=== PATIENT | male | born 1945 | race Caucasian/White ===

== ENCOUNTER 2025-04-18 06:18 | Emergency (ER) | payer OTHER, SELFPAY ==
[2025-04-18 06:29] VITALS: BP 177/88
[2025-04-18 06:42] VITALS: BP 171/93
[2025-04-18 07:00] VITALS: BP 154/79
--- NOTE | 2025-04-18 07:14 | ED.GENMED ---
History of Present Illness
General
Chief Complaint: Chest Pain
Source: patient
Exam Limitations: none
Time Seen by Provider: 04/18/25 06:58
History of Present Illness
History of Present Illness:
79-year-old male presents with chest tightness and shortness of breath worsening over the past week. He is on Coumadin for A-fib. He follows with Dr. Mendez from [place]. He denies abdominal pain or vomiting. He denies any significant leg
swelling. No fevers. He does note a dry cough. The pain that he describes as not made worse with breathing.
Phy Exam
Physical Exam
Physical Exam:
General: Well-appearing male no acute respiratory distress
HEENT normocephalic atraumatic
Heart: Irregular rate and rhythm
Lungs: Clear no wheeze
Abdomen is soft nontender nondistended
Extremities: Pitting edema noted bilateral lower extremities
Scores
Heart Score for Chest Pain Patients
STEMI patient?: No
History: Slightly or Non-Suspicious
ECG: Normal
Age: >/= 65 years
Risk Factors: 1 or 2 Risk Factors
Troponin: </= Normal Limit
Heart Score for Chest Pain Patients: 3
Heart Score Risk: 2.5% MACE over next 6 weeks
Course
Orders/Labs/Results
Orders:
Orders
04/18/25 06:19
EKG [Electrocardiogram (*1)] Urgent
Reason for Study: Chest Pain
EKG- Treatment ONCE
04/18/25 07:14
CR Chest - 2 Views Urgent
Comment:
Reason For Exam: sob
04/18/25 07:30
COVID-19 Antigen Urgent
Source: Nasal Swab
Complete Blood Count/With Diff Urgent
Comprehensive Metabolic Panel Urgent
NT-proBNP Urgent
Prothrombin Time Urgent
Troponin I Urgent
04/18/25 09:33
Furosemide [Lasix] 40 mg PO NOW STA
Abnormal Lab Results
04/18/25
07:30
RBC 3.94 L 10^6/uL
(4.70-6.10)
Hgb 12.1 L g/dL
(13.0-18.0)
Hct 36.1 L %
(39.0-52.0)
MPV 11.1 H fL
(7.4-10.4)
Absolute Monos (auto) 0.9 H 10^3/uL
(0.1-0.6)
Monocytes % 10.1 H %
(1.7-9.3)
PT 30.1 H Sec
(11.4-14.6)
Glucose 105 H mg/dl
(70-99)
04/18/25 07:30
04/18/25 07:30
Vital Signs
Initial and Last Documented VS:
Initial Vital Signs
Temp Pulse Resp BP Pulse Ox
98.4 F 78 22 177/88 94
04/18/25 06:29 04/18/25 06:29 04/18/25 06:29 04/18/25 06:29 04/18/25 06:29
Last Documented Vital Signs
Temp Pulse Resp BP Pulse Ox
98.4 F 68 19 153/83 90
04/18/25 06:29 04/18/25 09:00 04/18/25 09:00 04/18/25 09:00 04/18/25 09:00
MDM/Problems Addressed
Differential Diagnosis Includes:
Chest tightness and shortness of breath. Consider viral illness such as COVID or bronchitis heart failure versus pneumonia. He is on Coumadin will check INR and CBC to evaluate for any anemia. He also does appear to be retaining some fluid.
Consider CHF. Chest x-ray pending. BNP and troponin pending. EKG shows rate controlled A-fib which is not new.
*Pulse Oximetry
SaO2: 93
Oxygen Mode of Delivery: Room air
Patient hypoxic: no
*Critical Care Note
Total Time (30-74mins, 75-104mins- exclusive of procedures): Not Applicable
Update Note
Update Note:
Chest x-ray with mild CHF. BNP 5400. I suspect mild CHF as the patient's source of chest tightness and shortness of breath. He did well ambulating throughout the department. He was not hypoxic. Discussed admission versus discharge and at this
point stable for discharge. Will start Lasix 40 mg daily for the next 3 days and have him follow-up next with his cylinder sander operator, Dr. Trammell.
ED Attending Note
-
Portions of this chart may have been created with voice recognition software.� Occasional wrong word or��sound alike� substitutions may have occurred due to the inherent limitations of voice recognition software.
Discharge Plan
Departure
Patient Disposition: Home (Routine Discharge)
Date of Disposition: 04/18/25
Time of Disposition: 09:36
Patient with high blood pressure during this ER visit?: No
Discharge Problem:
CHF (congestive heart failure)
Instructions: *PCP/Other [facility] Heart Failure Instructions
Prescriptions:
New
furosemide [Lasix] 40 mg tablet
40 mg PO DAILY Qty: 3 0RF
No Action
Multi-Vitamins Tablet
PO DAILY
Aspirin Tablet
325 mg PO DAILY
B Complex Tablet
PO BID
Chromium Picolinate Tablet
400 mcg PO BID
Fish Oil Tablet
1,000 mg PO BID
Garlic Tablet
1,000 mg PO BID
Metoprolol Succinate Tablet
100 mg PO BID
Niacin Tablet
500 mg PO BID
Potassium Tablet
99 mg PO BID
Prilosec Tablet
10 mg PO DAILY
Saw [place] Tablet
450 mg PO BID
Simvastatin Tablet
80 mg PO QPM
Vitamin C 500 MG Tablet
500 mg PO BID
Cardizem Cd Tablet
180 mg PO DAILY
Warfarin Tablet
4 mg PO QPM
Patient Comments:
coumadin alternating doses 2mg/4mg
Referrals:
Yessica Rich DO [Family Provider, Internal Medicine]
Activity Restrictions/Additional Instructions:
Take Lasix daily for the next 3 days. Please follow-up with your cylinder sander operator early next week for recheck. Return here for increasing swelling or shortness of breath.
Interventions
Interventions:
*Risk Screen - Suicide Last Done: 04/18/25 06:22
*General Assessment Last Done: 04/18/25 07:18
*Neglect/Abuse Screening Last Done: 04/18/25 07:18
*ED- Fall Risk Assessment Last Done: 04/18/25 07:18
*ED COVID-19 Vaccine History Last Done: 04/18/25 07:18
ED- Cardiac Assessment Last Done: 04/18/25 07:18
Discharge Date and Time
Print Language: MALTESE
[2025-04-18 07:18] VITALS: BMI 34.4
[2025-04-18 08:07] LABS: Hematocrit 36.1 % (39.0-52.0); Hemoglobin 12.1 g/dL (13.0-18.0); Mean Corp Hgb Conc. 33.5 g/dL (33.0-37.0); Mean Corpuscular Volume 91.6 fL (80.0-94.0); Nucleated Red Blood Cells % 0 % (-); Platelet Count 153 10^3/uL (130-400); Red Cell Dist. Width 13.6 % (11.5-14.5)
[2025-04-18 08:17] LABS: INR 2.88; PT 30.1 Sec (11.4-14.6)
[2025-04-18 08:20] LABS: ALT (SGPT) 22 U/L (0-50); AST (SGOT) 24 U/L (17-59); Albumin 3.7 g/dl (3.5-5.0); Alkaline Phosphatase 85 U/L (38-126); Blood Urea Nitrogen 13 mg/dl (9-20); Calcium 8.4 mg/dl (8.4-10.2); Carbon Dioxide 23 mmol/L (22-30); Chloride 107 mmol/L (98-107); Estimated Creatinine Clearance 90 ml/min; Glucose 105 mg/dl (70-99); Potassium 4.6 mmol/L (3.5-5.1); Sodium 135 mmol/L (135-145); Total Protein 6.8 g/dl (6.3-8.2); eGFR > 60.00
[2025-04-18 08:22] LABS: COVID-19 Antigen Negative (Negative)
[2025-04-18 08:31] LABS: Troponin I 0.012 ng/ml
[2025-04-18 08:47] VITALS: BP 159/87
[2025-04-18 09:00] VITALS: BP 153/83
[2025-04-18] MEDS: LASIX 40 MG PO (09:56)
== END 2025-04-18 10:00 | disposition home or self-care (01) ==
LOC: EMR 06:18
PROVIDERS: Physician Assistant; EMERGENCY PHYSICIAN Emergency Medicine; FAMILY PHYSICIAN Internal Medicine
DX: R07.89 Other chest pain (principal); R06.02 Shortness of breath; R05.9 Cough, unspecified; R60.0 Localized edema; Z11.52 Encounter for screening for COVID-19; I50.9 Heart failure, unspecified; I48.91 Unspecified atrial fibrillation; Z79.01 Long term (current) use of anticoagulants; Z88.8 Allergy status to other drugs, medicaments and biological substances
CPT/HCPCS: 99285; 71046; 80053; 83880; 84484; 85025; 85610; 87811; 93005

== ENCOUNTER 2025-07-10 06:22 | Emergency (ER) | payer OTHER, SELFPAY ==
[2025-07-10] VITALS (8 sets, daily range): BP systolic 143–160; BP diastolic 73–97
--- NOTE | 2025-07-10 06:51 | ED.GENMED ---
History of Present Illness
General
Chief Complaint: Breathing Problem
Time Seen by Provider: 07/10/25 06:44
History of Present Illness
History of Present Illness:
79-year-old male with history of persistent A-fib, CHF, CAD status post stent, to[place] presents to the emergency department for evaluation of dyspnea on exertion for the past several weeks. States that he is currently Lasix every other day which was
recommended by his recording artist more than 1 month ago. Reports a dry cough but denies orthopnea. He also reports bilateral lower extremity swelling. He is not compliant with body weights he is unable to discern whether he has gained any weight
recently. Denies any exertional chest pain, black or bloody stools, abdominal pain, nausea, vomiting. No other medication changes other than the aforementioned Lasix dosage
Review of Systems
Review of Systems
Allergies reviewed?: Yes
All Other Systems: ROS reviewed and negative except as documented in HPI and ROS
Phy Exam
Physical Exam
Physical Exam:
GEN: Well appearing, NAD, WDWN
HEENT: Oral mucosa moist, no scleral icterus
Cardiac: Irregular, controlled rate, no murmur
Lung: No respiratory distress, no tachypnea, lungs clear to auscultation
MSK: No gross deformity or injuries
Skin: Generally pale appearing, no petechial lesions, no jaundice
Neuro: AO x3, moves all extremities freely
Psych: Calm, cooperative
Scores
Heart Failure Risk
Heart Failure Risk Score: Not Applicable
Course
Orders/Labs/Results
Orders:
Orders
07/10/25 06:23
EKG [Electrocardiogram (*1)] Urgent
Reason for Study: Shortness of Breath
EKG- Treatment ONCE
07/10/25 06:51
CR Chest - 2 Views Urgent
Comment:
Reason For Exam: SOB/BURROUGHS
07/10/25 07:16
Type+Screen Urgent
Complete Blood Count/No Diff Urgent
Comprehensive Metabolic Panel Urgent
NT-proBNP Urgent
Troponin I Urgent
07/10/25 08:27
Furosemide [Lasix] 40 mg IV NOW STA
Abnormal Lab Results
07/10/25
07:16
RBC 3.92 L 10^6/uL
(4.70-6.10)
Hgb 11.8 L g/dL
(13.0-18.0)
Hct 36.6 L %
(39.0-52.0)
MCHC 32.2 L g/dL
(33.0-37.0)
Plt Count 113 L 10^3/uL
(130-400)
MPV 10.9 H fL
(7.4-10.4)
Glucose 110 H mg/dl
(70-99)
07/10/25 07:16
07/10/25 07:16
Vital Signs
Initial and Last Documented VS:
Initial Vital Signs
Temp Pulse Resp BP Pulse Ox
97.6 F 64 20 159/82 96
07/10/25 06:35 07/10/25 06:35 07/10/25 06:35 07/10/25 06:35 07/10/25 06:35
Last Documented Vital Signs
Temp Pulse Resp BP Pulse Ox
97.6 F 65 16 143/73 97
07/10/25 06:35 07/10/25 10:00 07/10/25 10:00 07/10/25 10:00 07/10/25 10:00
MDM/Problems Addressed
MDM/Problems Addressed:
Clinical presentation is most consistent with mild acute CHF he was given IV diuresis with nearly 1 L of output during observation period in the ED. He ambulated with a steady pulse oximetry above 92% and reported no increased work of breathing.
Do not feel this patient requires admission to the hospital. Will increase his Lasix dosage for 1 week before returning to his normal baseline dosage and he is scheduled to follow-up with his recording artist in the office in 2 to 3 weeks.
Comment
Comment:
EKG independently interpreted shows in rate controlled atrial fibrillation in the right bundle branch block, no acute ischemic changes, comparable to April 2025 tracing
*Pulse Oximetry
SaO2: 96
Oxygen Mode of Delivery: Room air
Patient hypoxic: no
*Critical Care Note
Total Time (30-74mins, 75-104mins- exclusive of procedures): Not Applicable
ED Attending Note
-
Portions of this chart may have been created with voice recognition software.� Occasional wrong word or��sound alike� substitutions may have occurred due to the inherent limitations of voice recognition software.
Discharge Plan
Departure
Patient Disposition: Home (Routine Discharge)
Date of Disposition: 07/10/25
Time of Disposition: 09:44
Patient with high blood pressure during this ER visit?: No
Discharge Problem:
Acute CHF
Instructions: *PCP/Other [employer] Heart Failure Instructions
Prescriptions:
No Action
Multi-Vitamins Tablet
PO DAILY
Aspirin Tablet
325 mg PO DAILY
B Complex Tablet
PO BID
Chromium Picolinate Tablet
400 mcg PO BID
Fish Oil Tablet
1,000 mg PO BID
Garlic Tablet
1,000 mg PO BID
Metoprolol Succinate Tablet
100 mg PO BID
Niacin Tablet
500 mg PO BID
Potassium Tablet
99 mg PO BID
Prilosec Tablet
10 mg PO DAILY
Saw [place] Tablet
450 mg PO BID
Simvastatin Tablet
80 mg PO QPM
Vitamin C 500 MG Tablet
500 mg PO BID
Cardizem Cd Tablet
180 mg PO DAILY
Warfarin Tablet
4 mg PO QPM
Patient Comments:
coumadin alternating doses 2mg/4mg
furosemide [Lasix] 40 mg tablet
40 mg PO DAILY Qty: 3 0RF
Referrals:
Yessica Rich, DO [Family Provider, Internal Medicine]
Activity Restrictions/Additional Instructions:
Follow up with your recording artist as planned
For the next week, alternate between 20mg lasix and 40mg lasix each day. Tomorrow you will take 20mg, as we gave you a 40mg IV dose here today
Beginning 07/17/2025, return to your normal lasix dosage, 20mg every other day
Return if symptoms worsen
Interventions
Interventions:
*Risk Screen - Suicide Last Done: 07/10/25 06:27
*General Assessment Last Done: 07/10/25 07:17
*Neglect/Abuse Screening Last Done: 07/10/25 07:21
*ED- Fall Risk Assessment Last Done: 07/10/25 07:17
*ED COVID-19 Vaccine History Last Done: 07/10/25 07:17
*ED Influenza Vaccine History Last Done: 07/10/25 07:17
*Nursing Disposition Last Done: 07/10/25 10:20
ED- Cardiac Assessment Last Done: 07/10/25 07:17
ED- Pulmonary Assessment Last Done: 07/10/25 07:17
Discharge Date and Time
Discharge Date/Time: 07/10/25 10:20
Print Language: [place]
[2025-07-10 07:40] LABS: Hematocrit 36.6 % (39.0-52.0); Hemoglobin 11.8 g/dL (13.0-18.0); Mean Corp Hgb Conc. 32.2 g/dL (33.0-37.0); Mean Corpuscular Volume 93.4 fL (80.0-94.0); Platelet Count 113 10^3/uL (130-400); Red Cell Dist. Width 13.8 % (11.5-14.5)
[2025-07-10 07:59] LABS: ALT (SGPT) 31 U/L (0-50); AST (SGOT) 33 U/L (17-59); Albumin 3.6 g/dl (3.5-5.0); Alkaline Phosphatase 117 U/L (38-126); Blood Urea Nitrogen 18 mg/dl (9-20); Calcium 8.6 mg/dl (8.4-10.2); Carbon Dioxide 25 mmol/L (22-30); Chloride 103 mmol/L (98-107); Glucose 110 mg/dl (70-99); Potassium 4.6 mmol/L (3.5-5.1); Sodium 135 mmol/L (135-145); Total Protein 6.6 g/dl (6.3-8.2); eGFR > 60.00
[2025-07-10 08:12] LABS: Troponin I 0.021 ng/ml
[2025-07-10] MEDS: LASIX 40 MG IV (08:53)
== END 2025-07-10 10:20 | disposition home or self-care (01) ==
LOC: EMR 06:22
PROVIDERS: Physician Assistant; EMERGENCY PHYSICIAN Emergency Medicine; FAMILY PHYSICIAN Internal Medicine
DX: I50.9 Heart failure, unspecified (principal); I25.10 Atherosclerotic heart disease of native coronary artery without angina pectoris; I48.91 Unspecified atrial fibrillation; Z95.5 Presence of coronary angioplasty implant and graft
CPT/HCPCS: 96374; 99284; 71046; 80053; 83880; 84484; 85027; 86850; 86900; 86901; 93005